=== PATIENT | male | born 1955 | race Caucasian/White ===

== ENCOUNTER 2017-07-14 20:08 | Emergency (ER) | payer SELFPAY ==
[2017-07-14] MEDS ORDERED: ALBUTEROL SULFATE 2.5 MG/3 ML VIAL NEB ONE (20:43)
[2017-07-14] MEDS ORDERED: SUMAtriptan SUCCINATE INJ 6 MG/0.5 ML VIAL SUBCU ONE (20:45)
[2017-07-14] MEDS ORDERED: HYDROcodone 5MG/APAP 325MG 1 EA TAB PO ONE (20:45)
[2017-07-14] MEDS ORDERED: KETOROLAC TROMETHAMINE INJ 60 MG/2 ML VIAL IM ONE (20:45)
--- NOTE | 2017-07-14 20:59 | RAD ---
EXAM DESCRIPTION: Chest,1 View CLINICAL HISTORY: cough, fever COMPARISON: None. FINDINGS: Cardiac silhouette is within normal limits. There is consolidation in the right midlung and left lung base. Visualized osseous structures are within normal limits. IMPRESSION: Bilateral consolidations. Electronically signed by: Jamal Camarena 07/14/2017 8:58 PM [facility]
[2017-07-14 21:34] VITALS: TEMP 100.4
[2017-07-14] MEDS ORDERED: ALBUTEROL INH (ER DISPENSE) 1 EA INH INH ONE ×2 (21:40)
[2017-07-14] MEDS ORDERED: AZITHROMYCIN 250 MG TAB PO ONE (21:41)
[2017-07-14] MEDS ORDERED: cefTRIAXone SODIUM 1 GM VIAL IM ONE (21:41)
[2017-07-14] MEDS ORDERED: LIDOCAINE 1% 10 ML VIAL INJ ONE (21:55)
--- NOTE | 2017-07-14 21:58 | ED.PDOC ---
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 Denies: anxiety, depressed, numbness, paresthesia, seizure, tingling, tremors, weakness Endocrine: States: no symptoms reported Hematologic/Lymphatic: States: no symptoms reported Past Medical History (General) - Patient Medical History Hx Seizures: No Hx Stroke: No Hx Dementia: No Hx Asthma: No Hx of COPD: Yes Hx Cardiac Disorders: No Hx Congestive Heart Failure: No Hx Pacemaker: No Hx Hypertension: No Hx Thyroid Disease: No Hx Diabetes: No Hx Gastroesophageal Reflux: No Hx Renal Disease: No Hx Cancer: No Hx of HIV: No Hx Hepatitis C: No Hx MRSA: No Surgical History: appendectomy - Vaccination History Hx Tetanus, Diphtheria Vaccination: No Hx Influenza Vaccination: No - Social History Hx Tobacco Use: Yes Hx Alcohol Use: No Hx Substance Use: No Hx Substance Use Treatment: No Hx Depression: No Family Medical History - Family History Mother Family History: Unknown Physical Exam - Physical Exam General Appearance: Alert, Comfortable, No apparent distress, Well Developed, Well Groomed, Well Hydrated, Well Nourished ENT Exam: nasal congestion Neck: non-tender, full range of motion, supple Respiratory: no respiratory distress, no accessory muscle use, crackles, wheezing Cardiovascular/Chest: normal peripheral pulses, regular rate, rhythm, no edema, no gallop, no JVD, no murmur Gastrointestinal/Abdominal: normal bowel sounds, non tender, soft, no organomegaly Extremity: normal range of motion, non-tender, normal inspection 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 Patient will not stay in the hospital. Currently patient is non toxic and stable, discussed bilateral pneumonia with emphasis of prompt return if any change in status. Will give patient MDI with spacer and instruction. Gave IM Rocephin and first dose azithromycin for prompt treatment. Friend will stay with patient the next 24 hours Procedures - Additional Procedures Progress: general procedure for tobacco abuse cessation: Discussed cessation with patient for 5 minutes. took information well. Departure - Departure Clinical Impression: Pneumonia Qualifiers: Pneumonia type: due to unspecified organism Laterality: bilateral Lung location : unspecified part of lung Qualified Code(s): J18.9 - Pneumonia, unspecified organism Time of Disposition: 21:05 Disposition: Discharge to Home or Self Care Condition: Good Departure Forms: ED Discharge - Pt. Copy, Patient Portal Self Enrollment Instructions: Pneumonia-Adult, Cigarette Addiction (Alternative Therapy), Nicotine Addiction Diet: resume usual diet Activity: increase activity as tolerated Referrals: Dominga Calderon NP [Primary Care Provider] - 1-2 Days Prescriptions: Albuterol Inhaler [Ventolin Hfa Inhaler] 1 puff INH Q4HR PRN #1 inh PRN Reason: Shortness Of Breath/Wheezing Azithromycin [Zithromax Z-Dewayne] 1 ea PO DAILY #1 pack Cefdinir [Omnicef] 300 mg PO BID #20 cap Home Medications: Ambulatory Orders Albuterol Inhaler [Ventolin Hfa Inhaler] 1 puff INH Q4HR PRN #1 inh 07/14/17 Azithromycin [Zithromax Z-Dewayne] 1 ea PO DAILY #1 pack 07/14/17 Cefdinir [Omnicef] 300 mg PO BID #20 cap 07/14/17
[2017-07-14 23:00] VITALS: BP 154/88; O2SAT 95
--- NOTE | 2017-07-16 09:34 | RAD ---
EXAM DESCRIPTION: Chest,1 View CLINICAL HISTORY: cough, fever COMPARISON: None. FINDINGS: Cardiac silhouette is within normal limits. There is consolidation in the right midlung and left lung base. Visualized osseous structures are within normal limits. IMPRESSION: Bilateral consolidations. Electronically signed by: Jamal Camarena 07/14/2017 8:58 PM [facility]
== END 2017-07-14 23:00 | disposition home or self-care (01) ==
LOC: ER 20:08
DX: J18.9 Pneumonia, unspecified organism (principal); J44.9 Chronic obstructive pulmonary disease, unspecified; Z87.891 Personal history of nicotine dependence
CPT/HCPCS: 71045; 87502; 94640; J0696; J1885; J3030; J7611; Q0144

== ENCOUNTER → 2017-08-26 | Outpatient (CLI) | payer OTHER ==
--- NOTE | 2017-08-26 10:16 | RAD ---
EXAM DESCRIPTION: Chest,2 Views CLINICAL HISTORY: BILATERAL PNEUMONIA COMPARISON: Previous study July 14, 2017 TECHNIQUE: PA/lateral FINDINGS: There is no acute appearing cardiac or pulmonary abnormality. Heart size is prominent with normal pulmonary vascularity. No pleural effusion or pneumothorax. Lungs are clear with no consolidating infiltrate. Improved aeration of the left lung base and right upper lobe since previous study. Lateral view shows intact sternum and T-spine. Prominent spurring in the T-spine. IMPRESSION: Interval clearance of right upper lobe and left lower lobe infiltrates. Electronically signed by: Nabil Holland MD 08/26/2017 10:15 AM [facility]
== END ==
LOC: RAD 08:35
PROVIDERS: ATTEND Nurse Practitioner Family
DX: J18.9 Pneumonia, unspecified organism (principal)

== ENCOUNTER 2017-12-28 00:28 | Emergency (ER) | payer OTHER, SELFPAY ==
[2017-12-28 00:42] VITALS: TEMP 97.7
[2017-12-28] MEDS ORDERED: ONDANSETRON INJ 4 MG/2 ML VIAL IV ONE (00:54)
[2017-12-28] MEDS ORDERED: KETOROLAC TROMETHAMINE INJ 30 MG/ML VIAL IV ONE (00:54)
[2017-12-28] MEDS ORDERED: MORPHINE SULFATE INJ 10 MG/ML VIAL IV ONE ×2 (00:54→02:06)
--- NOTE | 2017-12-28 01:49 | CT ---
CT abdomen and pelvis without contrast on 12/28/2017 CLINICAL INDICATION: Left-sided back pain TECHNIQUE: Multiple axial images are obtained throughout the abdomen and pelvis without the administration of contrast. This exam was performed according to our departmental dose-optimization program, which includes automated exposure control, adjustment of the mA and/or kV according to patient size and/or use of iterative reconstruction technique. Total DLP is 1168.67 mGy*cm. COMPARISON: 10/01/2011 FINDINGS: Abdomen: There is minimal basilar atelectasis. Coronary artery calcifications and other vascular calcifications are noted. Stable hepatic cysts are noted. There is a small left renal cyst. There are no renal or ureteral stones and no hydronephrosis. The unenhanced solid abdominal organs are otherwise unremarkable. There is no abdominal adenopathy. There is no free fluid or free air within the abdomen. The abdominal portion of the GI tract is unremarkable. Pelvis: There is no free fluid in the pelvis. There is a small left inguinal hernia containing only fat. There is no pelvic adenopathy. Pelvic portion of the GI tract is unremarkable. Degenerative changes are noted in the spine. IMPRESSION: No acute abnormality. Electronically signed by: Maco Workman 12/28/2017 1:48 AM CDT
--- NOTE | 2017-12-28 02:10 | ED.PDOC ---
History of Present Illness - General Chief Complaint: Problem Stated Complaint: left flank pain Time Seen by Provider: 12/28/17 00:48 Source: patient Exam Limitations: no limitations - History of Present Illness Initial Comments: awoke Friday morning with back pain. Feels like kidney stones he had in the past. No hematuria or dysuria. No pain free intervals. No hx of anuerysm. Timing/Duration: 24 hours, getting worse Severity: moderate Improving Factors: rest, other - sitting upright say at the computer - enough to where he was pain free at times(?) Worsening Factors: movement, other - laying down when trying to sleep Associated Symptoms: denies symptoms Allergies/Adverse Reactions: Allergies NO KNOWN ALLERGY Allergy (Verified 12/28/17 00:42) Home Medications: Ambulatory Orders Albuterol Inhaler [Ventolin Hfa Inhaler] 1 puff INH Q4HR PRN #1 inh 07/14/17 Acetamin W/Cod #3 Tab [Tylenol w/CODEINE #3] 2 ea PO Q8HRS PRN 3 Days #10 tab Blood Pressure Medication 12/28/17 Cyclobenzaprine HCl [Flexeril] 10 mg PO TID PRN #10 tab 12/28/17 Lisinopril 12/28/17 Review of Systems - Review of Systems Constitutional: States: no symptoms reported EENTM: States: no symptoms reported Respiratory: States: no symptoms reported, other - no hemoptysis. Denies: cough , short of breath Cardiology: Denies: chest pain, palpitations, syncope Gastrointestinal/Abdominal: States: no symptoms reported, constipation - he took a laxative but it didn't help. Denies: abdominal pain, diarrhea, nausea, vomiting Genitourinary: States: no symptoms reported Musculoskeletal: States: back pain, muscle pain, muscle stiffness. Denies: neck pain Skin: States: no symptoms reported Neurological: States: no symptoms reported Hematologic/Lymphatic: Denies: blood clots Past Medical History (General) - Patient Medical History Hx Seizures: No Hx Stroke: No Hx Dementia: No Hx Asthma: No Hx of COPD: Yes Hx Cardiac Disorders: No Hx Congestive Heart Failure: No Hx Pacemaker: No Hx Hypertension: Yes Hx Thyroid Disease: No Hx Diabetes: No Hx Gastroesophageal Reflux: No Hx Renal Disease: No Hx Cancer: No Hx of HIV: No Hx Hepatitis C: No Hx MRSA: No Surgical History: appendectomy - Vaccination History Hx Tetanus, Diphtheria Vaccination: No Hx Influenza Vaccination: No Hx Pneumococcal Vaccination: No - Social History Hx Tobacco Use: Yes Hx Alcohol Use: No Hx Substance Use: No Hx Substance Use Treatment: No Hx Depression: No Family Medical History - Family History Mother Family History: Unknown Physical Exam - Physical Exam General Appearance: Alert, Comfortable, No apparent distress Ears, Nose, Throat: hearing grossly normal Neck: full range of motion, supple, normal inspection Respiratory: no respiratory distress Cardiovascular/Chest: normal peripheral pulses, regular rate, rhythm Gastrointestinal/Abdominal: non tender, soft, no pulsatile mass Back Exam: no vertebral tenderness, CVA tenderness (L), other - full but painful ROM; point tenderness lateral to the region of L2 Progress - Progress Progress: 12/28/17 02:07 improved but still with some pain. Worse when supine, rotation of his back, straining to sit up or deep breathing. Tender to palpation lateral to region of L2. I suspect musculoskeletal pain. Manage as such for the next 1-2 days. If no better he will f/u with his PCP. - EKG/XRAY/CT CT Ordered: Yes - no acute findings CT Interpretation Call Back: No Departure - Departure Clinical Impression: Back pain Qualifiers: Back pain location: low back pain Chronicity: acute Back pain laterality: left Sciatica presence: without sciatica Qualified Code(s): M54.5 - Low back pain Time of Disposition: Disposition: Discharge to Home or Self Care Condition: Fair Departure Forms: ED Discharge - Pt. Copy, Patient Portal Self Enrollment Instructions: Low Back Pain (DC) Activity: walking as tolerated Referrals: Dominga Calderon NP [Primary Care Provider] - 1-2 Days Prescriptions: Acetamin W/Cod #3 Tab [Tylenol w/CODEINE #3] 2 ea PO Q8HRS PRN 3 Days #10 tab PRN Reason: Moderate To Severe Pain Cyclobenzaprine HCl [Flexeril] 10 mg PO TID PRN #10 tab PRN Reason: Muscle Spasms Home Medications: Ambulatory Orders Albuterol Inhaler [Ventolin Hfa Inhaler] 1 puff INH Q4HR PRN #1 inh 07/14/17 Acetamin W/Cod #3 Tab [Tylenol w/CODEINE #3] 2 ea PO Q8HRS PRN 3 Days #10 tab Blood Pressure Medication 12/28/17 Cyclobenzaprine HCl [Flexeril] 10 mg PO TID PRN #10 tab 12/28/17 Lisinopril 12/28/17
[2017-12-28 02:40] VITALS: BP 145/88; O2SAT 98
== END 2017-12-28 02:41 | disposition home or self-care (01) ==
LOC: ER 00:28
DX: M54.5 Low back pain (principal); R10.9 Unspecified abdominal pain; J44.9 Chronic obstructive pulmonary disease, unspecified; I10 Essential (primary) hypertension; Z79.899 Other long term (current) drug therapy; Z87.891 Personal history of nicotine dependence
CPT/HCPCS: 74176; 81001; J1885; J2270; J2405

== ENCOUNTER 2018-09-23 19:31 | Emergency (ER) | payer SELFPAY ==
[2018-09-23 19:59] VITALS: TEMP 97.3; O2SAT 97
--- NOTE | 2018-09-23 20:50 | ED.PDOC ---
History of Present Illness - General Chief Complaint: Abdominal Pain Stated Complaint: Left lower quad pain Time Seen by Provider: 09/23/18 19:36 Source: patient Exam Limitations: no limitations - History of Present Illness Initial Comments: the patient is a 62-year-old male presenting to emergency room secondary to left flank pain that started yesterday evening. No nausea or vomiting. No urinary symptoms. He took a laxative to see if that would help. It did not. No fever. He had a similar episode approximately 6 months ago and had a CT scan which showed no significant kidney stones. No diarrhea. No evidence of sepsis. Discomfort is mild to moderate. He has tenderness to palpation over the far left lateral abdomen. No real costovertebral angle tenderness. No rebound or peritoneal signs. No palpable mass. No bruising or skin changes. Timing/Duration: 24 hours Severity: mild Improving Factors: nothing Worsening Factors: movement Associated Symptoms: denies symptoms Allergies/Adverse Reactions: Allergies NO KNOWN ALLERGY Allergy (Verified 12/28/17 00:42) Home Medications: Ambulatory Orders Albuterol Inhaler [Ventolin Hfa Inhaler] 1 puff INH Q4HR PRN #1 inh 07/14/17 Acetamin W/Cod #3 Tab [Tylenol w/CODEINE #3] 2 ea PO Q8HRS PRN 3 Days #10 tab 12/28/17 Blood Pressure Medication 12/28/17 Cyclobenzaprine HCl [Flexeril] 10 mg PO TID PRN #10 tab 12/28/17 Lisinopril 12/28/17 Ciprofloxacin [Cipro] 500 mg PO BID #14 tab 09/23/18 Metronidazole 500 mg PO TID #20 tab 09/23/18 Review of Systems - Review of Systems Constitutional: States: no symptoms reported EENTM: States: no symptoms reported Respiratory: States: no symptoms reported Cardiology: States: no symptoms reported Gastrointestinal/Abdominal: States: see HPI Genitourinary: States: no symptoms reported Musculoskeletal: States: no symptoms reported Skin: States: no symptoms reported Neurological: States: no symptoms reported Endocrine: States: no symptoms reported All other Systems: No Change from Baseline Past Medical History (General) - Patient Medical History Hx Seizures: No Hx Stroke: No Hx Dementia: No Hx Asthma: No Hx of COPD: Yes Hx Cardiac Disorders: No Hx Congestive Heart Failure: No Hx Pacemaker: No Hx Hypertension: Yes Hx Thyroid Disease: No Hx Diabetes: No Hx Gastroesophageal Reflux: No Hx Renal Disease: No Hx Cancer: No Hx of HIV: No Hx Hepatitis C: No Hx MRSA: No Surgical History: appendectomy - Vaccination History Hx Tetanus, Diphtheria Vaccination: No Hx Influenza Vaccination: No Hx Pneumococcal Vaccination: No - Social History Hx Tobacco Use: Yes Hx Alcohol Use: No Hx Substance Use: No Hx Substance Use Treatment: No Hx Depression: No Family Medical History - Family History Mother Family History: Unknown Physical Exam - Physical Exam General Appearance: Alert, Comfortable, No apparent distress Eye Exam: bilateral normal Ears, Nose, Throat: normal ENT inspection, normal pharynx Neck: full range of motion, supple Respiratory: lungs clear, normal breath sounds, no respiratory distress, no accessory muscle use Cardiovascular/Chest: normal peripheral pulses, regular rate, rhythm, no edema Peripheral Pulses: radial,right: 2+, radial,left: 2+, dorsalis pedis,right: 2+, dorsalis pedis,left: 2+ Gastrointestinal/Abdominal: soft, other - see history of present illness Rectal Exam: deferred Back Exam: normal inspection, no CVA tenderness, no vertebral tenderness Extremity: non-tender, normal inspection, no pedal edema, normal capillary refill Neurologic: slubber tender II-XII nml as tested, alert, normal mood/affect, oriented x 3 Skin Exam: normal color Comments: Vital Signs - 24 hr 09/23/18 19:53 Temperature 97.3 F L Pulse Rate [ 94 H left] Respiratory 18 Rate Blood Pressure 180/99 [left] O2 Sat by Pulse 97 Oximetry Progress - Progress Progress: 09/23/18 20:50 the patient is a 62-year-old male presenting to the emergency room secondary to left lateral abdominal pain. Clinically this is most consistent with mild diverticulitis. Accordingly he is going to be placed on ciprofloxacin and metronidazole for 7 days. He can start taking an [id number] probiotic. He should take these medications with food and avoid alcohol intake. He needs to keep himself well-hydrated and start taking a fiber supplement. He can take [id number] Motrin as needed for discomfort. ER warnings were given. Follow-up with primary care doctor within the next week. - Results/Orders Results/Orders: Laboratory Tests 09/23/18 19:59 Urine Color Yellow Urine Appearance Sl cloudy Urine pH 7.0 Ur Specific [place] 1.020 Urine Protein 30 Urine Glucose (UA) Negative Urine Ketones Trace Urine Blood Negative Urine Nitrite Negative Urine Bilirubin Negative Urine Urobilinogen 0.2 Ur Leukocyte Esterase Negative Urine RBC 0 Urine WBC 1-3 Ur Epithelial Cells 1-3 Amorphous Sediment 2+ Urine Bacteria 0 acute abdominal series shows no evidence of any obstruction or perforation. No evidence of any large stones. Departure - Departure Clinical Impression: Diverticulitis Disposition: Discharge to Home or Self Care Condition: Fair Departure Forms: ED Discharge - Pt. Copy, Patient Portal Self Enrollment Instructions: Diverticulitis (DC) Diet: regular diet - High-fiber Activity: increase activity as tolerated Referrals: Dominga Calderon NP [Primary Care Provider] - 1-2 Weeks Prescriptions: Ciprofloxacin [Cipro] 500 mg PO BID #14 tab Metronidazole 500 mg PO TID #20 tab Home Medications: Ambulatory Orders Albuterol Inhaler [Ventolin Hfa Inhaler] 1 puff INH Q4HR PRN #1 inh 07/14/17 Acetamin W/Cod #3 Tab [Tylenol w/CODEINE #3] 2 ea PO Q8HRS PRN 3 Days #10 tab 12/28/17 Blood Pressure Medication 12/28/17 Cyclobenzaprine HCl [Flexeril] 10 mg PO TID PRN #10 tab 12/28/17 Lisinopril 12/28/17 Ciprofloxacin [Cipro] 500 mg PO BID #14 tab 09/23/18 Metronidazole 500 mg PO TID #20 tab 09/23/18 Additional Instructions: the patient is a 62-year-old male presenting to the emergency room secondary to left lateral abdominal pain. Clinically this is most consistent with mild diverticulitis. Accordingly he is going to be placed on ciprofloxacin and metronidazole for 7 days. He can start taking an [id number] probiotic. He should take these medications with food and avoid alcohol intake. He needs to keep himself well-hydrated and start taking a fiber supplement. He can take [id number] Motrin as needed for discomfort. ER warnings were given. Follow-up with primary care doctor within the next week.
[2018-09-23] MEDS: CIPROFLOXACIN 500 MG TAB PO ONE (20:59)
[2018-09-23] MEDS: metroNIDAZOLE 500 MG TAB PO ONE (20:59)
[2018-09-23 21:03] VITALS: BP 142/87
--- NOTE | 2018-09-23 21:07 | RAD ---
EXAM DESCRIPTION: Abdomen Series CLINICAL HISTORY: left flank pain COMPARISON: None FINDINGS: Frontal view of the chest and supine and upright images of the abdomen were submitted. Cardiac silhouette is within normal limits. There is no focal parenchymal or pleural disease. There is no free air in the abdomen. There is no evidence of bowel obstruction. IMPRESSION: No acute abnormalities. Electronically signed by: Jamal Camarena 09/23/2018 9:04 PM CDT
== END 2018-09-23 21:04 | disposition home or self-care (01) ==
LOC: ER 19:31
DX: K57.32 Diverticulitis of large intestine without perforation or abscess without bleeding (principal); J44.9 Chronic obstructive pulmonary disease, unspecified; I10 Essential (primary) hypertension; Z87.891 Personal history of nicotine dependence; Z90.49 Acquired absence of other specified parts of digestive tract; Z79.899 Other long term (current) drug therapy

== ENCOUNTER 2019-12-20 08:34 | Observation (INO) | payer MEDICARE ==
[2019-12-20] MEDS ORDERED: ASPIRIN TABLET 325 MG TAB PO ONE (08:41)
[2019-12-20] MEDS ORDERED: NITROGLYCERIN 0.4 MG 25 EA TAB SL ONE (08:41)
--- NOTE | 2019-12-20 08:44 | ED.PDOC ---
History of Present Illness - General Time Seen by Provider: 12/20/19 08:39 Source: patient Exam Limitations: no limitations Additional Information: This is a 64-year-old male patient, with hypertension, heavy smoker patient presented with chest pain. Patient stated that the chest pain began around 5 PM yesterday he describes it as a pressure, but states heavy breathing, and dizziness. Patient stated that he gets dizzy spells every once in a while, but what concerned him today is that he feels out of it Patient went to an urgent care clinic and he was transferred to us because they thought that they saw some elevations on his EKG patient does have a history of a right bundle branch block Denies any fever chills or coughing Patient stated that the pressure in his chest is 2 out of 10 Patient stated that he had a stress test but that was many years ago - History of Present Illness Timing/Duration: intermittent Severity/Quality: pressure Location: substernal Chest Pain Radiation: no radiation Activities at Onset: none Worsening Factors: nothing Nitro Today/Relief: no nitro taken today Aspirin Treatment Today: no aspirin today Associated Symptoms: dizziness, shortness of breath Allergies/Adverse Reactions: Allergies NO KNOWN ALLERGY Allergy (Verified 12/28/17 00:42) Review of Systems - Review of Systems Constitutional: States: no symptoms reported EENTM: States: no symptoms reported Respiratory: States: no symptoms reported, short of breath Cardiology: States: chest pain Gastrointestinal/Abdominal: States: no symptoms reported Genitourinary: States: no symptoms reported Musculoskeletal: States: no symptoms reported Skin: States: no symptoms reported Neurological: States: other - dizziness Endocrine: States: no symptoms reported Past Medical History (General) - Patient Medical History Hx Seizures: No Hx Stroke: No Hx Dementia: No Hx Asthma: No Hx of COPD: Yes Hx Cardiac Disorders: No Hx Congestive Heart Failure: No Hx Pacemaker: No Hx Hypertension: Yes Hx Thyroid Disease: No Hx Diabetes: No Hx Gastroesophageal Reflux: No Hx Renal Disease: No Hx Cancer: No Hx of HIV: No Hx Hepatitis C: No Hx MRSA: No - Vaccination History Hx Tetanus, Diphtheria Vaccination: No Hx Influenza Vaccination: No Hx Pneumococcal Vaccination: No - Social History Hx Tobacco Use: Yes Hx Alcohol Use: No Hx Substance Use: No Hx Substance Use Treatment: No Hx Depression: No Family Medical History - Family History Mother Family History: Unknown Physical Exam - Physical Exam General Appearance: Well Developed, Well Groomed, Well Hydrated, Well Nourished Eyes, Ears, Nose, Throat Exam: PERRL/EOMI, normal ENT inspection, TMs normal Neck: non-tender, full range of motion, supple, normal inspection Respiratory: chest non-tender, lungs clear, normal breath sounds, no respiratory distress, no accessory muscle use Cardiovascular/Chest: normal peripheral pulses, regular rate, rhythm, no edema, no gallop, no JVD, no murmur Peripheral Pulses: radial,right: 2+, radial,left: 2+ Gastrointestinal/Abdominal: normal bowel sounds, non tender, soft, no organomegaly, no pulsatile mass Extremity: normal range of motion, non-tender, normal inspection, no pedal edema Skin Exam: normal color Lymphatic: no adenopathy Progress - Progress Progress: Patient admitted taking 1 baby aspirin so we will complete a 325 mg, EKG show evidence of PVC with evidence of a right bundle branch block and a heart rate of 103 12/20/19 09:03 12/20/19 [id number] male patient sent with chest pain, shortness of breath lightheadedness, his troponins were 0.03 patient does have elevated white blood cell count but the chest x-ray did not show any evidence of pneumonia did see some cardiomegaly. Patient looks well does not appear toxic and will be admitted to the hospital for chest pain work-up: 12/20/19 09:43This patient has not had any recent travel or surgeries, patient admits that he is able to take a deep breath without any evidence of chest discomfort patient has no risk factors for pulmonary embolism Departure - Departure Clinical Impression: Chest pain Qualifiers: Chest pain type: unspecified Qualified Code(s): R07.9 - Chest pain, unspecified Disposition: Admit Patient Condition: Fair Referrals: Dominga Calderon NP [Primary Care Provider] - 1-2 Weeks Decision To Admit - Decistion To Admit Decision to Admit Reason: Admit from ER Decision to Admit Date: 12/20/19 Decision to Admit Time: 09:42
[2019-12-20] MEDS ORDERED: ASPIRIN (CHEWABLE) 81 MG TAB PO ONE (08:53)
--- NOTE | 2019-12-20 10:36 | RAD ---
EXAM DESCRIPTION: Chest,1 View CLINICAL HISTORY: 64 years Male, chest pain COMPARISON: 08/26/2017. TECHNIQUE: AP radiograph of the chest was obtained. FINDINGS: Trachea is midline.The cardiomediastinal silhouette is normal in size. The pulmonary vasculature is within normal limits.The lungs are clear with no acute consolidation.No evidence of pleural effusions. IMPRESSION: No acute cardiopulmonary process. Electronically signed by: Lorrie Negro MD 12/20/2019 10:34 AM CDT
[2019-12-20] MEDS ORDERED: SODIUM CHLORIDE 0.9% (FLUSH) 10 ML SYG IV PRN (12:47)
[2019-12-20] MEDS ORDERED: ACETAMINOPHEN 325 MG TAB PO PRN (12:47)
[2019-12-20] MEDS ORDERED: MORPHINE SULFATE INJ 10 MG/ML VIAL IV PRN (12:47)
[2019-12-20] MEDS ORDERED: NITROGLYCERIN 0.4 MG 25 EA TAB SL PRN (12:47)
[2019-12-20] MEDS ORDERED: KCL 20 MEQ/NS 1,000 ML IVS PRN (12:55)
[2019-12-20] MEDS ORDERED: IV SET AND CAP CHANGE INJ INJ SCH (13:00)
--- NOTE | 2019-12-20 13:25 | SSS ---
SUPERVISING PHYSICIAN: Toro Barr MD CHIEF COMPLAINT: Chest pain. HISTORY OF PRESENT ILLNESS: This is a 64-year-old male patient who came to the Emergency Room with a complaint of chest pain that actually began about 5 o'clock yesterday afternoon, more of a pressure and some shortness of breath and even some dizziness. The chest pain spontaneously went away, but this morning he did not feel like he had a normal amount of energy and, therefore, he came to the Emergency Room. On presentation, he did have a sensation of some pressure in his chest about 2/10. In the ER, he was given 243 mg of aspirin to complete 325 mg as he took a baby aspirin at home. He was given sublingual nitroglycerin as well. His chest pain resolved in the ER. His troponin was negative. EKG did not show any acute findings although he did have a pre-existing right bundle branch block. He is referred for admission for a followup chest pain rule out. At the time of examination, the patient is alert and oriented with no distress. PAST MEDICAL HISTORY: 1. Hypertension. 2. Hyperlipidemia. 3. Nicotine dependency. PAST SURGICAL HISTORY: 1. Appendectomy. 2. Pyloric sphincter surgery as a child. MEDICATIONS: 1. Lisinopril 20 mg p.o. daily. 2. Lovastatin 20 mg p.o. daily. ALLERGIES: NO KNOWN DRUG ALLERGIES. FAMILY HISTORY: The patient's father and brother had heart disease. SOCIAL HISTORY: The patient has smoked one pack per day for 50 years. No alcohol, no illicit drugs. REVIEW OF SYSTEMS: CONSTITUTIONAL: No fever or chills. No recent weight loss or weight gain. HEENT: No headaches, vision changes, ear pain, nasal congestion or throat pain. RESPIRATORY: Positive for some shortness of breath. No cough, hemoptysis or pleuritic chest pain. CARDIOVASCULAR: Positive for chest pain. No palpitations or peripheral edema. GASTROINTESTINAL: No nausea, vomiting, diarrhea, constipation or abdominal pain. GENITOURINARY: No dysuria, frequency or flank pain. MUSCULOSKELETAL: No muscle cramps, joint pain or joint swelling. ENDOCRINE: No polydipsia, polyuria or polyphagia. No heat or cold intolerance. SKIN: No rashes, lesions or wounds. NEUROLOGIC: No syncope, paresthesias or seizures. PHYSICAL EXAMINATION: GENERAL: Mr. Duckworth is a 64 year old male in no active distress at this time. HEENT: Normocephalic, atraumatic. Pupils are equal and reactive. Oropharynx is clear. NECK: Supple without mass. RESPIRATORY: Essentially clear to auscultation bilaterally. CHEST: There is equal rise and fall of the chest with inspiration and expiration. CARDIOVASCULAR: Regular rate and rhythm. GASTROINTESTINAL: Abdomen is soft, nondistended, nontender. Bowel sounds are positive. EXTREMITIES: No cyanosis, clubbing or edema. NEUROLOGIC: Awake, alert and oriented times three. Cranial nerves II-XII are grossly intact as tested. SKIN: Warm and dry. LABORATORY: Sodium 134, potassium 3.2, chloride 97, BUN 23, creatinine 0.93. Glucose 129. BNP 134, troponin 0.03. White count 13.6, hemoglobin 17.4, hematocrit 51.7, platelet count 318, 5% bands. ASSESSMENT: 1. Chest pain, rule out acute coronary syndrome. 2. Hypertension. 3. Hyperlipidemia. 4. Continuous nicotine dependence. 5. Hyponatremia as well as hypokalemia. 6. Dehydration. 7. Leukocytosis. PLAN: At this time, the patient will be admitted for chest pain rule out. He has had two negative troponins and we will get an additional troponin 6 hours after the most recent. Repeat EKGs as well. We will continue his home medications. His leukocytosis is noted, however, he does not have any symptoms of infectious process. His chest x-ray is unremarkable. He does have some dehydration. We will treat him with some IV fluids and potassium replacement. If his troponin remains negative and he does not have any recurrence of chest pain, he can likely be discharged after the last set of cardiac markers. All troponins have been negative with no recurrence of chest pain. Therefore, discharging home with plan to follow up with PCP for cardiology referral and smoking cessation. Patient already verbalizes he will stop smoking. #[id number] [facility]
[2019-12-20 13:49] VITALS: TEMP 97.8
[2019-12-20 16:48] VITALS: BP 109/76; O2SAT 96
[2019-12-20] MEDS ORDERED: SODIUM CHLORIDE 0.9% (FLUSH) 10 ML SYG IV SCH (21:00)
== END 2019-12-20 19:36 | disposition home or self-care (01) ==
LOC: ER 08:34 → MS 11:02
PROVIDERS: ADMIT Nurse Practitioner; ATTEND Nurse Practitioner
DX: R07.89 Other chest pain (principal); E87.1 Hypo-osmolality and hyponatremia; E87.6 Hypokalemia; E86.0 Dehydration; D72.829 Elevated white blood cell count, unspecified; I10 Essential (primary) hypertension; E78.2 Mixed hyperlipidemia; F17.210 Nicotine dependence, cigarettes, uncomplicated; R42 Dizziness and giddiness; J44.9 Chronic obstructive pulmonary disease, unspecified; I45.10 Unspecified right bundle-branch block; I49.3 Ventricular premature depolarization; R00.0 Tachycardia, unspecified; Z79.899 Other long term (current) drug therapy; Z82.49 Family history of ischemic heart disease and other diseases of the circulatory system
CPT/HCPCS: 96366; 96365; J3480; 82553; 80053; 36415; 85025; 82550; 84484 ×3; 83880; 71045; 94760; 99406; 99285; 93005 ×3